=== PATIENT | female | born 2000 | race African-American/Black ===

== ENCOUNTER 2022-07-12 21:09 | Emergency (ER) | payer OTHER ==
[2022-07-12 21:18] VITALS: BP 103/68; PULSE 86; RESP 18; TEMP 98.3; BMI 19.5
== END 2022-07-12 23:00 | disposition left against medical advice (07) ==
LOC: JER 21:09
DX: R07.9 Chest pain, unspecified (principal)
CPT/HCPCS: 71046-TC-FY; 93005; 93010; 99284-25